=== PATIENT | female | born 1970 | race African-American/Black ===

== ENCOUNTER 2017-06-27 15:41 | Emergency (ER) | payer OTHER, MEDICAID ==
[~2017-06-27] VITALS: Ht 167.6 cm; Wt 75.0 kg
[2017-06-27 15:55] VITALS: BP 113/67
== END 2017-06-27 18:30 | disposition left against medical advice (07) ==
LOC: ER 16:28
DX: R10.9 Unspecified abdominal pain (principal); Z53.21 Procedure and treatment not carried out due to patient leaving prior to being seen by health care provider